=== PATIENT | female | born 1940 | race Hispanic/Latino ===

== ENCOUNTER → 2018-03-04 | Outpatient (CLI) | payer OTHER, MEDICARE ==
[~2018-03-04] MED LIST: AEC81 PO; CALC600T12 PO; CETI10CA5 PO; CHOL20004 PO; CITA40TA6 PO; CLON0.5T12 PO; CYCL30DR OP; EZET10 PO; FISH1CAP49 PO; PRAV40TA3 PO; PREG75 PO; PYRI50CA PO; TRAM50TA4 PO
== END | disposition home or self-care (01) ==
LOC: RAH 08:54
PROVIDERS: ATTEND Internal Medicine
DX: N64.4 Mastodynia (principal)
CPT/HCPCS: 77066

== ENCOUNTER → 2019-03-16 | Outpatient (CLI) | payer OTHER, MEDICARE | END | disposition home or self-care (01) | LOC: RAH 15:31 | PROVIDERS: ATTEND Internal Medicine | DX: R29.6 Repeated falls (principal) | CPT/HCPCS: 71046 ==

== ENCOUNTER → 2019-04-27 | Outpatient (CLI) | payer OTHER, MEDICARE ==
[~2019-04-27] MED LIST changes: -EZET10 PO; +EZET10TA13 PO
== END | disposition home or self-care (01) ==
LOC: RAH 08:01
PROVIDERS: ATTEND Internal Medicine
DX: M19.011 Primary osteoarthritis, right shoulder (principal); M25.852 Other specified joint disorders, left hip; M25.851 Other specified joint disorders, right hip; M48.07 Spinal stenosis, lumbosacral region; M47.816 Spondylosis without myelopathy or radiculopathy, lumbar region
CPT/HCPCS: 72100; 73030; 73522

== ENCOUNTER → 2020-05-31 | Outpatient (CLI) | payer OTHER, MEDICARE ==
[~2020-05-31] MED LIST changes: -CALC600T12 PO; +CALC600T15 PO; -CLON0.5T12 PO; +CLON0.5T4 PO
== END | disposition home or self-care (01) ==
LOC: RAH 10:43
PROVIDERS: ATTEND Internal Medicine
DX: L72.3 Sebaceous cyst (principal); R22.0 Localized swelling, mass and lump, head
CPT/HCPCS: 76536

== ENCOUNTER → 2021-02-07 | Outpatient (CLI) | payer SELFPAY ==
[~2021-02-07] MED LIST changes: +CALC-1125 PO; -CALC600T15 PO
== END | disposition home or self-care (01) ==
LOC: OIH 08:50
PROVIDERS: ATTEND Internal Medicine
DX: Z13.6 Encounter for screening for cardiovascular disorders (principal)
CPT/HCPCS: 75571